=== PATIENT | male | born 1995 | race Caucasian/White ===

== ENCOUNTER 2017-07-29 03:00 | Emergency (ER) | payer OTHER ==
[~2017-07-29] VITALS: Ht 188 cm; Wt 74.8 kg
[~2017-07-29 03:00] MED LIST: HYDACE5 PO; Naprosyn500 MG PO; Norco 5-325 Ta1 EACH PO; SULTRIDS PO; Vibramycin100 MG PO
[2017-07-29] MEDS ORDERED: Vibramycin100 MG PO (04:39)
[2017-07-29] MEDS ORDERED: Percocet 5-3251 EACH PO (04:39)
== END 2017-07-29 04:45 | disposition home or self-care (01) ==
LOC: ER 03:00
DX: S61.032A Puncture wound without foreign body of left thumb without damage to nail, initial encounter (principal); L03.012 Cellulitis of left finger; Z23 Encounter for immunization; Z88.0 Allergy status to penicillin; W22.8XXA Striking against or struck by other objects, initial encounter
CPT/HCPCS: 73140; 90471; 90714; 99283

== ENCOUNTER 2018-12-06 20:21 | Emergency (ER) | payer OTHER ==
[~2018-12-06] VITALS: Ht 185.4 cm; Wt 78.9 kg
[~2018-12-06 20:21] MED LIST changes: +Percocet 5-3251 EACH PO; +Percocet 7.5-31 EACH PO
[2018-12-06] MEDS ORDERED: AZIT500 PO (21:37)
[2018-12-06] MEDS ORDERED: PAROEX473 ML MM (21:38)
== END 2018-12-06 21:48 | disposition home or self-care (01) ==
LOC: ER 20:21
DX: K04.7 Periapical abscess without sinus (principal); Z88.0 Allergy status to penicillin; F17.210 Nicotine dependence, cigarettes, uncomplicated
CPT/HCPCS: 99282

== ENCOUNTER 2018-12-21 15:09 | Emergency (ER) | payer OTHER ==
[~2018-12-21] VITALS: Ht 185.4 cm; Wt 81.7 kg
[~2018-12-21 15:09] MED LIST changes: +AZIT500 PO; +PAROEX473 ML MM
== END 2018-12-21 16:21 | disposition left against medical advice (07) ==
LOC: ER 15:09
DX: Z53.21 Procedure and treatment not carried out due to patient leaving prior to being seen by health care provider (principal)

== ENCOUNTER 2018-12-21 21:38 | Emergency (ER) | payer OTHER ==
[~2018-12-21] VITALS: Ht 188 cm; Wt 79.4 kg
== END 2018-12-21 23:19 | disposition home or self-care (01) ==
LOC: ER 21:38
DX: K02.9 Dental caries, unspecified (principal); Z88.0 Allergy status to penicillin; Z79.899 Other long term (current) drug therapy; F17.210 Nicotine dependence, cigarettes, uncomplicated
CPT/HCPCS: 99282

== ENCOUNTER 2018-12-25 04:09 | Emergency (ER) | payer OTHER ==
[~2018-12-25] VITALS: Ht 185.4 cm; Wt 77.1 kg
== END 2018-12-25 07:11 | disposition left against medical advice (07) ==
LOC: ER 04:09
DX: Z53.21 Procedure and treatment not carried out due to patient leaving prior to being seen by health care provider (principal)

== ENCOUNTER 2019-03-11 19:38 | Emergency (ER) | payer OTHER ==
[~2019-03-11] VITALS: Ht 185.4 cm; Wt 72.6 kg
[2019-03-11 20:36] LABS: BASOPHILS ABSOLUTE AUTO 0.04 K/mm3 (0.00-0.23); BASOPHILS PERCENT AUTO 0 % (0-2); EOSINOPHILS ABSOLUTE AUTO 0.34 K/mm3 (0.00-0.68); EOSINOPHILS PERCENT AUTO 3 % (0-6); Hematocrit 41.7 % (37.0-53.0); Hemoglobin 13.9 g/dL (13.5-17.5); IMMATURE GRAN ABSOLUTE AUTO 0.02 K/mm3 (0.00-0.10); IMMATURE GRAN PERCENT AUTO 0 % (0-1); LYMPHOCYTES ABSOLUTE AUTO 2.04 K/mm3 (0.84-5.20); LYMPHOCYTES PERCENT AUTO 16 % (21-46); MONOCYTES ABSOLUTE AUTO 1.04 K/mm3 (0.16-1.47); MONOCYTES PERCENT AUTO 8 % (4-13); Mean Corpuscular HGB 30.2 pg (26.0-34.0); Mean Corpuscular HGB Conc 33.3 g/dL (31.5-36.5); Mean Corpuscular Volume 91 fL (80-100); Mean Platelet Volume 9.7 fL (9.1-12.4); NEUTROPHILS ABSOLUTE AUTO 9.34 K/mm3 (1.96-9.15); NEUTROPHILS PERCENT AUTO 73 % (41-73); Platelet Count 276 K/mm3 (150-400); RDW Coefficient Variation 11.9 % (11.7-14.2); RDW Standard Deviation 39.7 fL (35.1-46.3); Red Blood Cell Count 4.61 M/mm3 (4.30-5.90); White Blood Cell Count 12.82 K/mm3 (4.00-11.30)
[2019-03-11 21:00] LABS: Alanine Aminotransfer (ALT/SGP 19 U/L (12-78); Albumin, Blood 4.1 g/dL (3.4-5.0); Albumin/Globulin Ratio 1.2 (0.8-1.8); Alk Phos 82 U/L (50-136); Anion Gap 4 mmol/L (6-16); Aspartate Aminotrans (AST/SGOT 18 U/L (12-37); Bilirubin, Total 2.6 mg/dL (0.1-1.0); Blood Urea Nitrogen 12 mg/dL (8-24); CO2, Blood 30 mmol/L (21-32); Calcium, Blood 9.1 mg/dL (8.5-10.1); Chloride, Blood 103 mmol/L (98-108); Free Thyroxine 0.96 ng/dL (0.70-1.60); Globulin, Blood 3.4 g/dL (2.2-4.0); Glomerular Filtration Rate >60 (60-); Glucose, Blood 94 mg/dL (70-99); Potassium, Blood 3.6 mmol/L (3.5-5.5); Sodium, Blood 137 mmol/L (136-145); Total Protein, Blood 7.5 g/dL (6.4-8.2)
[2019-03-11 21:29] LABS: U Amphetamine Screen DETECTED; U Barbituate Screen Not Detected; U Benzodiazapine Screen Not Detected; U Buprenorphine Screen Not Detected; U Cannabinoids Screen DETECTED; U Cocaine Screen Not Detected; U Methadone Screen Not Detected; U Methamphetamine Screen DETECTED; U Opiates Screen DETECTED; U Oxycodone Screen Not Detected; U Phencyclidine Screen Not Detected; U Propoxyphene Screen Not Detected
== END 2019-03-11 21:06 | disposition left against medical advice (07) ==
LOC: ER 19:38
PROVIDERS: Emergency Medicine
DX: J02.9 Acute pharyngitis, unspecified (principal); F19.10 Other psychoactive substance abuse, uncomplicated; Z88.0 Allergy status to penicillin; F17.210 Nicotine dependence, cigarettes, uncomplicated
CPT/HCPCS: 36415; 70360; 80053; 84439; 84443; 84481; 85025; 99283-25

== ENCOUNTER 2019-05-09 18:15 | Emergency (ER) | payer OTHER ==
[~2019-05-09] VITALS: Ht 185.4 cm; Wt 72.6 kg
[2019-05-09] MEDS ORDERED: Cleocin HCl300 MG PO (18:45)
== END 2019-05-09 18:55 | disposition home or self-care (01) ==
LOC: ER 18:15
DX: K02.9 Dental caries, unspecified (principal); K04.1 Necrosis of pulp; F17.210 Nicotine dependence, cigarettes, uncomplicated; Z88.0 Allergy status to penicillin
CPT/HCPCS: 99282

== ENCOUNTER 2019-08-16 12:35 | Emergency (ER) | payer OTHER ==
[~2019-08-16] VITALS: Ht 188 cm; Wt 70.3 kg
[~2019-08-16 12:35] MED LIST changes: +Cleocin HCl300 MG PO
[2019-08-16 13:25] LABS: Hematocrit 48.8 % (37.0-53.0); Hemoglobin 16.3 g/dL (13.5-17.5); Mean Corpuscular HGB 29.3 pg (26.0-34.0); Mean Corpuscular HGB Conc 33.4 g/dL (31.5-36.5); Mean Corpuscular Volume 88 fL (80-100); Mean Platelet Volume 9.6 fL (9.1-12.4); Platelet Count 315 K/mm3 (150-400); RDW Coefficient Variation 11.8 % (11.7-14.2); RDW Standard Deviation 37.9 fL (35.1-46.3); Red Blood Cell Count 5.56 M/mm3 (4.30-5.90); White Blood Cell Count 5.62 K/mm3 (4.00-11.30)
[2019-08-16 13:46] LABS: BAND PERCENT MAN 10 % (0-8); BASOPHILS PERCENT MAN 0 % (0-2); EOSINOPHILS ABSOLUTE MAN 0.05 K/mm3 (0.00-0.68); EOSINOPHILS PERCENT MAN 1 % (0-6); LYMPHOCYTES % ATYPICAL MANUAL 4 % (0-0); LYMPHOCYTES ABSOLUTE MAN 1.79 K/mm3 (0.84-5.20); LYMPHOCYTES PERCENT MAN 28 % (21-46); MONOCYTES ABSOLUTE MAN 0.05 K/mm3 (0.16-1.47); MONOCYTES PERCENT MAN 1 % (4-13); SEG NEUTROPHILS PERCENT MAN 56 % (41-73); TOTAL CELLS COUNTED 100
[2019-08-16 14:01] LABS: Alanine Aminotransfer (ALT/SGP 18 U/L (12-78); Albumin, Blood 4.6 g/dL (3.4-5.0); Albumin/Globulin Ratio 1.2 (0.8-1.8); Alk Phos 107 U/L (50-136); Anion Gap 10 mmol/L (6-16); Aspartate Aminotrans (AST/SGOT 23 U/L (12-37); Bilirubin, Total 3.7 mg/dL (0.1-1.0); Blood Urea Nitrogen 15 mg/dL (8-24); Bun/Creatinine Ratio 15.8 (12.0-20.0); CO2, Blood 25 mmol/L (21-32); Calcium, Blood 9.8 mg/dL (8.5-10.1); Chloride, Blood 103 mmol/L (98-108); Creatinine, Blood 0.95 mg/dL (0.60-1.20); Globulin, Blood 3.8 g/dL (2.2-4.0); Glomerular Filtration Rate >60 (60-); Glucose, Blood 95 mg/dL (70-99); Potassium, Blood 3.6 mmol/L (3.5-5.5); Sodium, Blood 138 mmol/L (136-145); Total Protein, Blood 8.4 g/dL (6.4-8.2)
== END 2019-08-16 14:17 | disposition left against medical advice (07) ==
LOC: ER 12:35
PROVIDERS: Physician Assistant
DX: M54.2 Cervicalgia (principal); R11.2 Nausea with vomiting, unspecified; Z53.21 Procedure and treatment not carried out due to patient leaving prior to being seen by health care provider
CPT/HCPCS: 36415; 80053; 83690; 85025; 96374; 99283-25; J2405

== ENCOUNTER 2019-10-18 18:35 | Emergency (ER) | payer OTHER ==
[~2019-10-18] VITALS: Ht 185.4 cm; Wt 74.8 kg
[2019-10-18] MEDS ORDERED: KEFLEX500 MG PO (19:25)
[2019-10-18] MEDS ORDERED: PERIDEX15 ML MM (19:50)
== END 2019-10-18 20:18 | disposition home or self-care (01) ==
LOC: ER 18:35
DX: K04.7 Periapical abscess without sinus (principal); F17.210 Nicotine dependence, cigarettes, uncomplicated; Z88.0 Allergy status to penicillin
CPT/HCPCS: 96372; 99283-25; J1885

== ENCOUNTER 2020-06-17 10:25 | Emergency (ER) | payer OTHER ==
[~2020-06-17] VITALS: Ht 185.4 cm; Wt 81.7 kg
[~2020-06-17 10:25] MED LIST changes: +KEFLEX500 MG PO; +PERIDEX15 ML MM
== END 2020-06-17 11:45 | disposition home or self-care (01) ==
LOC: ER 10:25
DX: S60.411A Abrasion of left index finger, initial encounter (principal); F32.9 Major depressive disorder, single episode, unspecified; F17.210 Nicotine dependence, cigarettes, uncomplicated; Z88.0 Allergy status to penicillin; Z79.899 Other long term (current) drug therapy; V27.4XXA Motorcycle driver injured in collision with fixed or stationary object in traffic accident, initial encounter; Y92.488 Other paved roadways as the place of occurrence of the external cause
CPT/HCPCS: 73130; 99283-25

== ENCOUNTER 2020-10-19 16:44 | Emergency (ER) | payer OTHER ==
[~2020-10-19] VITALS: Ht 185.4 cm; Wt 81.7 kg
[2020-10-19] MEDS ORDERED: CLIN300 PO (18:15)
[2020-10-19] MEDS ORDERED: KETO10 PO (18:15)
== END 2020-10-19 18:26 | disposition home or self-care (01) ==
LOC: ER 16:44
DX: K04.7 Periapical abscess without sinus (principal); F17.210 Nicotine dependence, cigarettes, uncomplicated
CPT/HCPCS: 99282; A9270

== ENCOUNTER 2021-01-24 09:49 | Emergency (ER) | payer OTHER ==
[~2021-01-24] VITALS: Ht 182.9 cm; Wt 77.1 kg
[~2021-01-24 09:49] MED LIST changes: +CLIN300 PO; +KETO10 PO
[2021-01-24] MEDS ORDERED: Bactrim Ds Tab1 EACH PO (11:17)
== END 2021-01-24 11:23 | disposition home or self-care (01) ==
LOC: ER 09:49
DX: J32.9 Chronic sinusitis, unspecified (principal); F17.210 Nicotine dependence, cigarettes, uncomplicated
CPT/HCPCS: 99282

== ENCOUNTER 2022-05-12 21:55 | Emergency (ER) | payer OTHER ==
[~2022-05-12] VITALS: Ht 185.4 cm; Wt 81.7 kg
[~2022-05-12 21:55] MED LIST changes: +Bactrim Ds Tab1 EACH PO
[2022-05-13] MEDS ORDERED: DOXY100 PO (00:25)
[2022-05-15 01:11] LABS: CHLAMYDIA TRACHOMATIS, NAA Negative (Negative)
== END 2022-05-13 00:52 | disposition home or self-care (01) ==
LOC: ER 21:55
PROVIDERS: Student in an Organized Health Care Education/Training Program
DX: N50.89 Other specified disorders of the male genital organs (principal); Z88.0 Allergy status to penicillin; Z79.899 Other long term (current) drug therapy; F17.210 Nicotine dependence, cigarettes, uncomplicated
CPT/HCPCS: 87491; 87591; J0696

== ENCOUNTER 2022-10-04 09:40 | Emergency (ER) | payer OTHER ==
[~2022-10-04] VITALS: Ht 185.4 cm; Wt 79.4 kg
[~2022-10-04 09:40] MED LIST changes: +DOXY100 PO
== END 2022-10-04 11:44 | disposition home or self-care (01) ==
LOC: ER 09:40
DX: S00.12XA Contusion of left eyelid and periocular area, initial encounter (principal); H11.32 Conjunctival hemorrhage, left eye; S00.83XA Contusion of other part of head, initial encounter; Y04.8XXA Assault by other bodily force, initial encounter; F17.210 Nicotine dependence, cigarettes, uncomplicated; Z79.899 Other long term (current) drug therapy; Z88.0 Allergy status to penicillin
CPT/HCPCS: 70100

== ENCOUNTER 2023-01-15 17:58 | Emergency (ER) | payer OTHER ==
[~2023-01-15] VITALS: Ht 185.4 cm; Wt 81.7 kg
[~2023-01-15 17:58] MED LIST changes: +BISA10S PR; +DOC250 PO; +MIRALAX17 GM PO
[2023-01-15 18:11] VITALS: BP 126/73
== END 2023-01-15 19:43 | disposition home or self-care (01) ==
LOC: ER 17:58
DX: K59.00 Constipation, unspecified (principal); F17.210 Nicotine dependence, cigarettes, uncomplicated; Z88.0 Allergy status to penicillin; Z79.899 Other long term (current) drug therapy
CPT/HCPCS: 99282; A9270

== ENCOUNTER 2023-10-18 19:55 | Emergency (ER) | payer OTHER ==
[~2023-10-18] VITALS: Ht 185.4 cm; Wt 92.5 kg
[2023-10-18 20:05] VITALS: BP 156/101
== END 2023-10-18 20:39 | disposition left against medical advice (07) ==
LOC: ER 19:55
DX: Z53.21 Procedure and treatment not carried out due to patient leaving prior to being seen by health care provider (principal)
CPT/HCPCS: 99281

== ENCOUNTER 2025-03-30 12:23 | Emergency (ER) | payer OTHER ==
[~2025-03-30] VITALS: Ht 185.4 cm; Wt 79.4 kg
[2025-03-30 12:35] VITALS: BP 141/94
[2025-03-30 13:23] LABS: BASOPHILS ABSOLUTE AUTO 0.09 K/mm3 (0.00-0.23); BASOPHILS PERCENT AUTO 1 % (0-2); EOSINOPHILS ABSOLUTE AUTO 0.15 K/mm3 (0.00-0.68); EOSINOPHILS PERCENT AUTO 1 % (0-6); Hematocrit 46.3 % (37.0-53.0); Hemoglobin 16.4 g/dL (13.5-17.5); IMMATURE GRAN ABSOLUTE AUTO 0.12 K/mm3 (0.00-0.10); IMMATURE GRAN PERCENT AUTO 1 % (0-1); LYMPHOCYTES ABSOLUTE AUTO 1.80 K/mm3 (0.84-5.20); LYMPHOCYTES PERCENT AUTO 10 % (21-46); MONOCYTES ABSOLUTE AUTO 0.98 K/mm3 (0.16-1.47); MONOCYTES PERCENT AUTO 5 % (4-13); Mean Corpuscular HGB Conc 35.4 g/dL (31.5-36.5); Mean Corpuscular Volume 83 fL (80-100); NEUTROPHILS ABSOLUTE AUTO 15.75 K/mm3 (1.96-9.15); NEUTROPHILS PERCENT AUTO 83 % (41-73); NRBC ABSOLUTE 0.00 K/mm3 (0.00-0.02); NRBC Auto 0.0 /100 WBC (0.0-0.2); RDW Coefficient Variation 11.9 % (11.7-14.2); RDW Standard Deviation 36.3 fL (35.1-46.3)
[2025-03-30 13:34] LABS: Platelet Count 318 K/mm3 (150-400)
[2025-03-30 13:35] LABS: Alanine Aminotransfer (ALT/SGP 31.0 U/L (12-78); Albumin, Blood 4.8 g/dL (3.4-5.0); Albumin/Globulin Ratio 1.1 (0.8-1.8); Anion Gap 6.0 mmol/L (3-11); Aspartate Aminotrans (AST/SGOT 37.0 U/L (12-37); Bilirubin, Total 0.8 mg/dL (0.1-1.0); Blood Urea Nitrogen 17.0 mg/dL (8-24); CO2, Blood 27.0 mmol/L (21-32); Calcium, Blood 9.7 mg/dL (8.5-10.1); Chloride, Blood 104.0 mmol/L (98-108); Creatinine, Blood 0.74 mg/dL (0.60-1.20); Globulin, Blood 4.3 g/dL (2.2-4.0); Glucose, Blood 76.0 mg/dL (70-99); Potassium, Blood 4.4 mmol/L (3.5-5.5); Sodium, Blood 133.0 mmol/L (136-145); Total Protein, Blood 9.1 g/dL (6.4-8.2)
[2025-03-30 15:53] LABS: Source, Urine Clean Catch
[2025-03-30 16:04] LABS: Bilirubin, Urine Neg (Neg); Color, Urine Yellow (P-Yellow); Glucose Qualitative, Urine Neg (Neg); Ketones, Urine Neg (Neg); Leukocyte Esterase, Urine Neg (Neg); Protein, Urine 2+ (Neg); Specific Gravity, Urine 1.015 (1.003-1.022); Urobilinogen, Urine NORM (Normal)
[2025-03-30 16:13] LABS: Red Blood Cells, Urine 0-2 /hpf (0-2); White Blood Cells, Urine 0-2 /hpf (0-5)
== END 2025-03-30 16:40 | disposition home or self-care (01) ==
LOC: ER 12:23
PROVIDERS: Student in an Organized Health Care Education/Training Program
DX: R10.84 Generalized abdominal pain (principal); F11.20 Opioid dependence, uncomplicated; F17.210 Nicotine dependence, cigarettes, uncomplicated; V19.9XXA Pedal cyclist (driver) (passenger) injured in unspecified traffic accident, initial encounter
CPT/HCPCS: 74176; 80053; 81001; 83690; 85025; 99285-25

== ENCOUNTER 2025-04-17 07:43 | Emergency (ER) | payer OTHER ==
[~2025-04-17] VITALS: Ht 185.4 cm; Wt 74.8 kg
[2025-04-17 08:21] VITALS: BP 157/88
[2025-04-17] MEDS ORDERED: Ketorolac Tromethamine 30mg Vial IM ONE (08:45)
== END 2025-04-17 09:50 | disposition home or self-care (01) ==
LOC: ER 07:43
DX: M79.605 Pain in left leg (principal); M79.604 Pain in right leg; F17.210 Nicotine dependence, cigarettes, uncomplicated; V23.49XA Other motorcycle driver injured in collision with car, pick-up truck or van in traffic accident, initial encounter
CPT/HCPCS: 73552; 96372; 99283-25; J1885